=== PATIENT | male | born 1950 | race Caucasian/White ===

== ENCOUNTER 2016-10-19 08:56 | Outpatient (CLI) | payer MEDICARE, OTHER | END 2016-10-19 08:57 | disposition home or self-care (01) | DX: E78.5 Hyperlipidemia, unspecified (principal); I25.10 Atherosclerotic heart disease of native coronary artery without angina pectoris; I10 Essential (primary) hypertension; Z95.5 Presence of coronary angioplasty implant and graft; I25.83 Coronary atherosclerosis due to lipid rich plaque ==

== ENCOUNTER 2016-10-21 16:12 | Outpatient (CLI) | payer MEDICARE, OTHER | END 2016-10-21 16:13 | disposition home or self-care (01) | DX: Z77.090 Contact with and (suspected) exposure to asbestos (principal); R91.8 Other nonspecific abnormal finding of lung field ==

== ENCOUNTER 2016-11-09 13:44 | Outpatient (CLI) | payer MEDICARE, OTHER | END 2016-11-09 13:45 | disposition home or self-care (01) | DX: G47.61 Periodic limb movement disorder (principal); R06.83 Snoring | CPT/HCPCS: 99213; G0463 ==

== ENCOUNTER 2016-12-03 22:15 | Outpatient (CLI) | payer MEDICARE, OTHER | END 2016-12-03 22:16 | disposition home or self-care (01) | DX: G47.33 Obstructive sleep apnea (adult) (pediatric) (principal); Z68.31 Body mass index [BMI] 31.0-31.9, adult ==

== ENCOUNTER 2016-12-21 10:54 | Outpatient (CLI) | payer MEDICARE, OTHER | END 2016-12-21 10:55 | disposition home or self-care (01) | DX: G47.33 Obstructive sleep apnea (adult) (pediatric) (principal) | CPT/HCPCS: 99213; G0463 ==

== ENCOUNTER 2017-01-01 14:56 | Outpatient (CLI) | payer MEDICARE, OTHER | END 2017-01-01 14:57 | disposition home or self-care (01) | DX: N28.1 Cyst of kidney, acquired (principal); N32.9 Bladder disorder, unspecified; N20.0 Calculus of kidney ==

== ENCOUNTER 2017-01-10 19:44 | Outpatient (CLI) | payer MEDICARE, OTHER | END 2017-01-10 19:45 | disposition home or self-care (01) | DX: G47.33 Obstructive sleep apnea (adult) (pediatric) (principal) ==

== ENCOUNTER 2017-01-15 10:07 | Outpatient (CLI) | payer MEDICARE, OTHER | END 2017-01-15 10:08 | disposition home or self-care (01) | DX: N13.30 Unspecified hydronephrosis (principal); N20.1 Calculus of ureter; N26.1 Atrophy of kidney (terminal); N20.0 Calculus of kidney ==

== ENCOUNTER 2017-02-01 14:04 | Outpatient (CLI) | payer MEDICARE, OTHER | END 2017-02-01 14:05 | disposition home or self-care (01) | DX: G47.33 Obstructive sleep apnea (adult) (pediatric) (principal) | CPT/HCPCS: 99213; G0463 ==

== ENCOUNTER 2017-04-25 13:17 | Outpatient (CLI) | payer MEDICARE, OTHER | END 2017-04-25 13:18 | disposition home or self-care (01) | DX: G47.33 Obstructive sleep apnea (adult) (pediatric) (principal) | CPT/HCPCS: 99213; G0463 ==

== ENCOUNTER 2017-05-04 10:14 | Outpatient (CLI) | payer MEDICARE, OTHER | END 2017-05-04 10:15 | disposition home or self-care (01) | LOC: LAB.F 10:14 | PROVIDERS: ATTEND Urology | DX: E29.1 Testicular hypofunction (principal) | CPT/HCPCS: 36415; 84403 ==

== ENCOUNTER 2017-05-20 06:06 | Day surgery (SDC) | payer MEDICARE, OTHER ==
[2017-05-20] MEDS ORDERED: LACTATED RINGERS 1,000 ML IV ONE (07:14)
[2017-05-20] MEDS ORDERED: PROPOFOL 200 MG/20 ML VIAL IVP ONE (08:00)
[2017-05-20] MEDS ORDERED: LIDOCAINE-MPF 2% 5 ML VIAL IM ONE (08:00)
[2017-05-20] MEDS ORDERED: MIDAZOLAM 2 MG/2 ML VIAL IVP ONE (08:00)
[2017-05-20 11:03] VITALS: BP 128/75
== END 2017-05-20 06:07 | disposition home or self-care (01) ==
LOC: SDS 06:06
PROVIDERS: ATTEND Surgery
PROC: 0DBK8ZX Excision of Ascending Colon, Via Natural or Artificial Opening Endoscopic, Diagnostic (ICD-10-PCS; principal; 2017-05-20 07:30)
DX: D12.2 Benign neoplasm of ascending colon (principal); I25.10 Atherosclerotic heart disease of native coronary artery without angina pectoris; I25.2 Old myocardial infarction; E78.5 Hyperlipidemia, unspecified; I10 Essential (primary) hypertension; G47.33 Obstructive sleep apnea (adult) (pediatric); K21.9 Gastro-esophageal reflux disease without esophagitis; M54.9 Dorsalgia, unspecified; G89.29 Other chronic pain; Z79.82 Long term (current) use of aspirin; Z86.73 Personal history of transient ischemic attack (TIA), and cerebral infarction without residual deficits; Z87.891 Personal history of nicotine dependence
CPT/HCPCS: 45380; J7120

== ENCOUNTER 2017-05-30 13:14 | Outpatient (CLI) | payer MEDICARE, OTHER | END 2017-05-30 13:15 | disposition home or self-care (01) | LOC: SC 13:14 | PROVIDERS: ATTEND Internal Medicine Pulmonary Disease | DX: G47.33 Obstructive sleep apnea (adult) (pediatric) (principal) | CPT/HCPCS: 99213; G0463; 99212 ==

== ENCOUNTER 2017-07-04 13:16 | Outpatient (CLI) | payer MEDICARE, OTHER | END 2017-07-04 13:17 | disposition home or self-care (01) | LOC: SC 13:16 | PROVIDERS: ATTEND Internal Medicine Pulmonary Disease | DX: G47.33 Obstructive sleep apnea (adult) (pediatric) (principal) | CPT/HCPCS: 99213; G0463; 99212 ==

== ENCOUNTER 2017-08-29 13:17 | Outpatient (CLI) | payer MEDICARE, OTHER | END 2017-08-29 13:18 | disposition home or self-care (01) | LOC: SC 13:17 | PROVIDERS: ATTEND Internal Medicine Pulmonary Disease | DX: G47.33 Obstructive sleep apnea (adult) (pediatric) (principal) | CPT/HCPCS: 99213; G0463; 99212 ==

== ENCOUNTER 2017-10-31 13:21 | Outpatient (CLI) | payer MEDICARE, OTHER | END 2017-10-31 13:22 | disposition home or self-care (01) | LOC: SC 13:21 | PROVIDERS: ATTEND Internal Medicine Pulmonary Disease | DX: G47.33 Obstructive sleep apnea (adult) (pediatric) (principal) | CPT/HCPCS: 99213; G0463; 99212 ==

== ENCOUNTER 2019-09-18 16:09 | Outpatient (CLI) | payer MEDICARE, OTHER ==
[2019-09-18 16:57] LABS: BASOPHILS % (AUTO) 0.3 %; EOSINOPHILS # (AUTO) 0.1 10^3/uL (0.0-0.7); EOSINOPHILS % (AUTO) 2.2 %; HGB - HEMOGLOBIN 14.5 g/dL (14.0-18.0); LYMPHOCYTES # (AUTO) 1.6 10^3/uL (1.5-3.5); LYMPHOCYTES % (AUTO) 26.2 %; MEAN CORPUSCULAR HEMOGLOBIN 32.4 pg (27.0-31.0); MEAN CORPUSCULAR HGB CONC 34.8 g/dL (32.0-36.0); MEAN CORPUSCULAR VOLUME 93.3 fL (80.0-94.0); MEAN PLATELET VOLUME 11.2 fL (7.4-11.4); MONOCYTES # (AUTO) 0.5 10^3/uL (0.0-1.0); MONOCYTES % (AUTO) 8.3 %; NEUTROPHILS # (AUTO) 3.8 10^3/uL (1.5-6.6); NEUTROPHILS % (AUTO) 62.2 %; PLT - PLATELET COUNT 133 10^3/uL (130-450); RED BLOOD COUNT 4.47 10^6/uL (4.70-6.10)
--- NOTE | 2019-09-19 09:13 | XRAY Report ---
Reason: ARTHRITIS OF RIGHT KNEE Procedure Date: 09/18/2019 Accession Number: [id number] / [id number] Procedure: XR - Knee 3 View RT CPT Code: Final Report FULL RESULT: EXAM: RIGHT KNEE RADIOGRAPHY EXAM DATE: 09/18/2019 04:32 PM. CLINICAL HISTORY: ARTHRITIS OF RIGHT KNEE. COMPARISON: None. TECHNIQUE: 3 views. FINDINGS: Bones: No fracture or focus of bony destruction. No changes to suggest avascular necrosis. Normal mineralization. Joints: Mild degenerative changes involving the medial and patellofemoral joints with narrowing, subchondral sclerosis and osteophytic formation. No subluxation. Soft Tissues: Small suprapatellar joint effusion. Vascular calcifications are incidental in the popliteal artery. IMPRESSION: 1. Mild degenerative changes. 2. Vascular calcifications, incidental. RADIA
== END 2019-09-18 16:10 | disposition home or self-care (01) ==
LOC: DI 16:09
PROVIDERS: ATTEND Family Medicine
DX: M17.11 Unilateral primary osteoarthritis, right knee (principal); R79.89 Other specified abnormal findings of blood chemistry
CPT/HCPCS: 36415; 84403; 85025

== ENCOUNTER 2020-02-02 21:45 | Outpatient (CLI) | payer MEDICARE, OTHER | END 2020-02-02 21:46 | disposition EMS.NT | LOC: EMS 21:45 | PROVIDERS: ATTEND Surgery | DX: R03.0 Elevated blood-pressure reading, without diagnosis of hypertension (principal); R42 Dizziness and giddiness ==

== ENCOUNTER 2020-08-19 11:45 | Outpatient (CLI) | payer MEDICARE, OTHER ==
[2020-08-19 12:20] LABS: BILIRUBIN,URINE NEGATIVE (NEGATIVE); GLUCOSE, URINE (UA) NEGATIVE (NEGATIVE); KETONES,URINE (UA) NEGATIVE (NEGATIVE); LEUKOCYTE ESTERASE, URINE MODERATE (NEGATIVE); NITRITE,URINE POSITIVE (NEGATIVE); OCCULT BLOOD,URINE MODERATE (NEGATIVE); PROTEIN,URINE NEGATIVE (NEGATIVE); UROBILINOGEN,URINE 0.2 (NORMAL) E.U./dL (NORMAL)
[2020-08-19 12:28] LABS: BACTERIA,URINE Many /HPF (None Seen); CLARITY,URINE HAZY (CLEAR); SQUAMOUS EPITHELIAL CELL,UR NONE SEEN (<= Few)
== END 2020-08-19 11:46 | disposition home or self-care (01) ==
LOC: LAB 11:45
PROVIDERS: ATTEND Urology
DX: N20.0 Calculus of kidney (principal)
CPT/HCPCS: 81001; 87086; 87181

== ENCOUNTER 2020-10-01 11:55 | Outpatient (CLI) | payer MEDICARE, OTHER ==
[2020-10-01 15:32] LABS: BILIRUBIN,URINE NEGATIVE (NEGATIVE); GLUCOSE, URINE (UA) NEGATIVE (NEGATIVE); KETONES,URINE (UA) NEGATIVE (NEGATIVE); LEUKOCYTE ESTERASE, URINE MODERATE (NEGATIVE); NITRITE,URINE NEGATIVE (NEGATIVE); OCCULT BLOOD,URINE SMALL (NEGATIVE); PROTEIN,URINE 30 mg/dL (NEGATIVE); UROBILINOGEN,URINE 0.2 (NORMAL) E.U./dL (NORMAL)
[2020-10-01 15:45] LABS: BACTERIA,URINE Many /HPF (None Seen); CLARITY,URINE HAZY (CLEAR); SQUAMOUS EPITHELIAL CELL,UR NONE SEEN (<= Few); WBC CLUMPS,URINE PRESENT
== END 2020-10-01 11:56 | disposition home or self-care (01) ==
LOC: LAB.S 11:55
PROVIDERS: ATTEND Physician Assistant Medical
DX: N39.0 Urinary tract infection, site not specified (principal)
CPT/HCPCS: 81001; 81599; 87086; 87181

== ENCOUNTER 2020-11-22 00:22 | Emergency (ER) | payer MEDICARE, OTHER ==
[2020-11-22] MEDS ORDERED: cefTRIAXone 1 GM in SODIUM CHLORIDE 0.9% MINIBAG 100 ML IV STA (00:49)
--- NOTE | 2020-11-22 00:50 | ED Physician Documentation ---
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 Del Toro presents with malaise, chills, and abdominal discomfort gradual in onset this evening. diffuse, aching, constant, mild/moderate, nonradiating, without exac/relieving factors. Patient states he has been on keflex for about a week, both preop and postop. denies urinary sx, back pain, n/v/d. Review of Systems Ten Systems: 10 systems reviewed and negative Constitutional: reports: Fever, Chills, Myalgias, Fatigue Cardiac: denies: Chest pain / pressure Respiratory: denies: Dyspnea GI: reports: Abdominal Pain. denies: Nausea, Vomiting, Diarrhea : denies: Dysuria Neurologic: reports: Generalized weakness PD PAST MEDICAL HISTORY - Past Medical History Cardiovascular: Hypertension, High cholesterol, [place] Respiratory: Sleep apnea, CPAP use Endocrine/Autoimmune: None GI: Ulcers, Colon polyps : Kidney stones HEENT: None Psych: None Musculoskeletal: Chronic back pain Derm: None - Past Surgical History General: Colonoscopy, Other - Present Medications Home Medications: Ambulatory Orders Medication Instructions Recorded Confirmed Aspirin [Aspirin EC] 81 mg PO DAILY 05/19/17 05/19/17 Fluticasone [Flonase] 1 sprays GREGORY DAILY 05/19/17 05/19/17 Losartan Potassium 100 mg PO DAILY 05/19/17 05/19/17 Omeprazole [PriLOSEC] 20 mg PO DAILY 05/19/17 05/19/17 Oxycodone HCl/Acetaminophen 10 - 325 mg PO Q8H PRN 05/19/17 05/19/17 [Endocet 7.5-325 mg Tablet] Sildenafil Citrate [Viagra] 50 mg PO ONCE PRN 05/19/17 05/19/17 Simvastatin 40 mg PO QPM 05/19/17 05/19/17 Testosterone Cypionate 200 mg IM ONCE 05/19/17 05/19/17 [Depo-Testosterone] diazePAM [Diazepam] 10 mg PO QPM PRN 05/19/17 05/19/17 methocarbamoL [Robaxin] 500 mg PO TID 05/19/17 05/19/17 - Allergies Allergies/Adverse Reactions: Allergies Allergy/AdvReac Type Severity Reaction Status Date / Time atorvastatin [From Lipitor] Allergy Unknown Verified 11/22/20 00:34 lisinopril Allergy Unknown Verified 11/22/20 00:34 erythromycin base AdvReac Nausea Verified 05/19/17 13:34 PD ED PE NORMAL - Vitals Vital signs reviewed: Yes - General General: Alert and oriented X 3, No acute distress, Well developed/nourished - HEENT HEENT: Atraumatic, PERRL, EOMI - Neck Neck: Supple, no meningeal sign - Cardiac Cardiac: RRR - Respiratory Respiratory: No respiratory distress, Clear bilaterally - Abdomen Abdomen: Other (discomfort diffusely to palpation. distended abdomen.) - Male Male : Deferred - Rectal Rectal: Deferred - Back Back: Other (L CVA discomfort to palpation) - Derm Derm: Normal color - Extremities Extremities: No deformity - Neuro Neuro: Alert and oriented X 3 - Psych Psych: Normal mood, Normal affect Results - Vitals Vitals: Vital Signs - 24 hr 11/22/20 11/22/20 11/22/20 00:31 02:13 02:30 Temperature 38.2 C H 37.4 C Heart Rate 114 H 104 H 96 Respiratory 18 18 22 Rate Blood Pressure 157/100 H 141/85 H 136/83 H O2 Saturation 97 92 94 11/22/20 11/22/20 11/22/20 02:58 03:24 03:37 Temperature 37.4 C Heart Rate 106 H 98 Respiratory 16 18 18 Rate Blood Pressure 136/97 H O2 Saturation 95 95 11/22/20 04:30 Temperature Heart Rate 104 H Respiratory 16 Rate Blood Pressure 135/78 H O2 Saturation 93 Oxygen O2 Source Room air - Labs Labs: Laboratory Tests 11/22/20 11/22/20 11/22/20 01:04 01:05 01:05 WBC 14.2 H RBC 4.51 L Hgb 14.4 Hct 42.8 MCV 94.9 H MCH 31.9 H MCHC 33.6 RDW 14.3 Plt Count 117 L MPV 11.1 Neut # (Auto) 12.4 H Lymph # (Auto) 0.7 L [place] # (Auto) 0.9 Eos # (Auto) 0.1 Baso # (Auto) 0.0 Absolute Nucleated RBC 0.00 Nucleated RBC % 0.0 Sodium 136 Potassium 3.8 Chloride 98 L Carbon Dioxide 24 Anion Gap 14.0 H BUN 16 Creatinine 1.2 Estimated GFR (MDRD) 60 L Glucose 128 H Lactic Acid Calcium 8.7 Total Bilirubin 1.4 H AST 32 ALT 34 Alkaline Phosphatase 59 Total Protein 6.1 L Albumin 3.5 Globulin 2.6 Albumin/Globulin Ratio 1.3 Urine Color Urine Clarity Urine pH Ur Specific [place] Urine Protein Urine Glucose (UA) Urine Ketones Urine Occult Blood Urine Nitrite Urine Bilirubin Urine Urobilinogen Ur Leukocyte Esterase Urine RBC Urine WBC Ur Squamous Epith Cells Urine Bacteria Urine Culture Comments Nasal Adenovirus (PCR) NOT DETECTED Nasal B. parapertussis DNA (PCR) NOT DETECTED Nasal Coronavir 229E PCR NOT DETECTED Nasal Coronavir HKU1 PCR NOT DETECTED Nasal Coronavir NL63 PCR NOT DETECTED Nasal Coronavir OC43 PCR NOT DETECTED Nasal Enterovir/Rhinovir PCR NOT DETECTED Nasal Influenza B PCR NOT DETECTED Nasal Influenza A PCR NOT DETECTED Nasal Parainfluen 1 PCR NOT DETECTED Nasal Parainfluen 2 PCR NOT DETECTED Nasal Parainfluen 3 PCR NOT DETECTED Nasal Parainfluen 4 PCR NOT DETECTED Nasal RSV (PCR) NOT DETECTED Nasal B.pertussis DNA PCR NOT DETECTED Nasal C.pneumoniae (PCR) NOT DETECTED Gregory Human Metapneumo PCR NOT DETECTED Nasal M.pneumoniae (PCR) NOT DETECTED Nasal SARS-CoV-2 (PCR) NOT DETECTED 11/22/20 11/22/20 11/22/20 01:10 02:40 04:40 WBC RBC Hgb Hct MCV MCH MCHC RDW Plt Count MPV Neut # (Auto) Lymph # (Auto) [place] # (Auto) Eos # (Auto) Baso # (Auto) Absolute Nucleated RBC Nucleated RBC % Sodium Potassium Chloride Carbon Dioxide Anion Gap BUN Creatinine Estimated GFR (MDRD) Glucose Lactic Acid 2.2 2.2 Calcium Total Bilirubin AST ALT Alkaline Phosphatase Total Protein Albumin Globulin Albumin/Globulin Ratio Urine Color DARK YELLOW Urine Clarity SL. CLOUDY Urine pH 6.0 Ur Specific [place] <=1.005 Urine Protein NEGATIVE Urine Glucose (UA) NEGATIVE Urine Ketones NEGATIVE Urine Occult Blood LARGE H Urine Nitrite POSITIVE H Urine Bilirubin NEGATIVE Urine Urobilinogen 0.2 (NORMAL) Ur Leukocyte Esterase MODERATE H Urine RBC 6-10 H Urine WBC 6-10 H Ur Squamous Epith Cells NONE SEEN Urine Bacteria Moderate H Urine Culture Comments INDICATED Nasal Adenovirus (PCR) Nasal B. parapertussis DNA (PCR) Nasal Coronavir 229E PCR Nasal Coronavir HKU1 PCR Nasal Coronavir NL63 PCR Nasal Coronavir OC43 PCR Nasal Enterovir/Rhinovir PCR Nasal Influenza B PCR Nasal Influenza A PCR Nasal Parainfluen 1 PCR Nasal Parainfluen 2 PCR Nasal Parainfluen 3 PCR Nasal Parainfluen 4 PCR Nasal RSV (PCR) Nasal B.pertussis DNA PCR Nasal C.pneumoniae (PCR) Gregory Human Metapneumo PCR Nasal M.pneumoniae (PCR) Nasal SARS-CoV-2 (PCR) PD MEDICAL DECISION MAKING - ED course ED course: 12:45 AMsepsis suspected at this time. 30 cc/kg bolus withheld since patient appears to have ascitic abdomen. His blood pressure is robust and he is not hypotensive at this time. Will give a liter of fluids to start. Suspected source is given recent lithotripsy with stent placement. 2:15am- pain improved. tachycardia improved and fever has defervesced. CT with possible thickening/inflammation around L uteral stent. awaiting radiologist read. 4am - d/w urologist Dr. Tinoco. patient will be transferred to for iv antibiotics, management of uti/ureteral stent. Dr. Tinoco requested a rosa be placed and it was agreed we would attempt a orsa. d/w patient who refused at this time. d/w Dr. Yon Minor, accepting hospitalist. will give zosyn in light of prior MDR cultures and transfer to for iv antibiotics. Departure - Departure Disposition: 02 Transfer Acute Care Hosp Clinical Impression: UTI (urinary tract infection), Infection and inflammatory reaction due to indwelling ureteral stent, initial encounter Condition: Stable
[2020-11-22] MEDS ORDERED: SODIUM CHLORIDE 0.9% 1,000 ML IV STA (00:52)
[2020-11-22] MEDS ORDERED: ACETAMINOPHEN 325 MG TABLET PO STA (00:54)
[2020-11-22] MEDS ORDERED: cefTRIAXone 1 GM VIAL ONE (01:08)
[2020-11-22 01:29] LABS: BASOPHILS % (AUTO) 0.1 %; EOSINOPHILS # (AUTO) 0.1 10^3/uL (0.0-0.7); EOSINOPHILS % (AUTO) 0.4 %; HCT - HEMATOCRIT 42.8 % (42.0-52.0); HGB - HEMOGLOBIN 14.4 g/dL (14.0-18.0); LYMPHOCYTES # (AUTO) 0.7 10^3/uL (1.5-3.5); MEAN CORPUSCULAR HEMOGLOBIN 31.9 pg (27.0-31.0); MEAN CORPUSCULAR HGB CONC 33.6 g/dL (32.0-36.0); MEAN CORPUSCULAR VOLUME 94.9 fL (80.0-94.0); MEAN PLATELET VOLUME 11.1 fL (7.4-11.4); MONOCYTES # (AUTO) 0.9 10^3/uL (0.0-1.0); MONOCYTES % (AUTO) 6.1 %; NEUTROPHILS # (AUTO) 12.4 10^3/uL (1.5-6.6); NEUTROPHILS % (AUTO) 87.8 %; PLT - PLATELET COUNT 117 10^3/uL (130-450); RED BLOOD COUNT 4.51 10^6/uL (4.70-6.10); RED CELL DISTRIBUTION WIDTH 14.3 % (12.0-15.0); WHITE BLOOD COUNT 14.2 x10^3/uL (4.8-10.8)
[2020-11-22 01:38] LABS: LACTIC ACID, VENOUS 2.2 mmol/L (0.5-2.2)
[2020-11-22 01:39] LABS: ALBUMIN 3.5 g/dL (3.2-5.5); ALBUMIN/GLOBULIN RATIO 1.3 (1.0-2.2); BILIRUBIN,TOTAL 1.4 mg/dL (0.2-1.0); CALCIUM 8.7 mg/dL (8.5-10.3); CREATININE 1.2 mg/dL (0.6-1.2); POTASSIUM 3.8 mmol/L (3.5-5.0); TOTAL PROTEIN 6.1 g/dL (6.7-8.2)
[2020-11-22] MEDS ORDERED: IOVERSOL 320 100 ML VIAL IVP ONE ×2 (01:40→02:12)
[2020-11-22 02:10] LABS: B. PARAPERTUSSIS- RESP PCR PAN NOT DETECTED; B. PERTUSSIS- RESP PCR PANEL NOT DETECTED; C. PNEUMONIAE- RESP PCR PANEL NOT DETECTED; CORONAVIRUS 229E-RESP PCR NOT DETECTED; CORONAVIRUS HKU1-RESP PCR NOT DETECTED; CORONAVIRUS NL63-RESP PCR NOT DETECTED; CORONAVIRUS OC43-RESP PCR NOT DETECTED; HUMAN METAPNEUMOVIRUS NOT DETECTED; INFLUENZA A- RESP PCR PANEL NOT DETECTED; INFLUENZA B - RESP PCR PANEL NOT DETECTED; M. PNEUMONIAE- RESP PCR PANEL NOT DETECTED; PARAINFLUENZA VIRUS 1 NOT DETECTED; PARAINFLUENZA VIRUS 2 NOT DETECTED; PARAINFLUENZA VIRUS 3 NOT DETECTED; PARAINFLUENZA VIRUS 4 NOT DETECTED; RHINOVIRUS/ENTEROVIRUS NOT DETECTED; RSV- RESP PCR PANEL NOT DETECTED; SARS-CoV-2 -RESP PCR PANEL NOT DETECTED
[2020-11-22 03:01] LABS: BILIRUBIN,URINE NEGATIVE (NEGATIVE); GLUCOSE, URINE (UA) NEGATIVE (NEGATIVE); KETONES,URINE (UA) NEGATIVE (NEGATIVE); LEUKOCYTE ESTERASE, URINE MODERATE (NEGATIVE); NITRITE,URINE POSITIVE (NEGATIVE); OCCULT BLOOD,URINE LARGE (NEGATIVE); PROTEIN,URINE NEGATIVE (NEGATIVE); UROBILINOGEN,URINE 0.2 (NORMAL) E.U./dL (NORMAL)
[2020-11-22 03:02] LABS: CLARITY,URINE SL. CLOUDY (CLEAR)
[2020-11-22 03:03] LABS: BACTERIA,URINE Moderate /HPF (None Seen); SQUAMOUS EPITHELIAL CELL,UR NONE SEEN (<= Few)
[2020-11-22] MEDS ORDERED: VANCOMYCIN INJ 1.5 GM in SODIUM CHLORIDE 0.9% 500 ML IV STA (03:06)
[2020-11-22] MEDS ORDERED: VANCOMYCIN 1 GM VIAL ONE (03:24)
[2020-11-22] MEDS ORDERED: SODIUM CHLORIDE 0.9% 1,000 ML IV SCH (05:00)
[2020-11-22 05:04] LABS: LACTIC ACID, VENOUS 2.2 mmol/L (0.5-2.2)
[2020-11-22] MEDS ORDERED: PIPERACILLIN/TAZOBACTAM 3.375 GM in SODIUM CHLORIDE 0.9% MINIBAG 100 ML IV STA (05:10)
[2020-11-22] MEDS ORDERED: MORPHINE 2 MG/ML CARPUJECT IVP STA (07:23)
[2020-11-22 08:02] VITALS: BP 132/78
--- NOTE | 2020-11-22 10:42 | CT Report ---
PROCEDURE: Abdomen/Pelvis W INDICATIONS: recent lithotripsy, L stent placed. septic CONTRAST: IV CONTRAST: Optiray 320 ml: 100 PO CONTRAST: *NO PO CONTRAST TECHNIQUE: After the administration of nonionic contrast, 5 mm thick sections acquired from the diaphragms to th e symphysis. 5 mm thick coronal and sagittal reformats were acquired. For radiation dose reduction, the following was used: automated exposure control, adjustment of mA and/or kV according to patient size. COMPARISON: 01/15/2017 FINDINGS: Image quality: Excellent. ABDOMEN: Lung bases: Basilar atelectasis/scarring. Marked multivessel coronary vascular calcifications. Heart size is normal. No pericardial effusion. Solid organs: Liver and spleen are normal in size and enhancement. Gallbladder demonstrates multipl e folds, otherwise unremarkable. Biliary system is non dilated. Pancreas enhances normally. No adr enal nodules. Nonobstructing punctate left renal stone is noted. Unchanged atrophic appearance of the left kidney. Multilobulated cyst at the inferior pole of the right kidney with questionable thin septation with ca lcification. No definite enhancing nodule. This is grossly unchanged from noncontrast examination. Ne phroureteral stent is noted coiled within the left renal pelvis extending through the ureter and into the bladder. There is mild left-sided ureteral dilation with enhancement of the ureteral wall. There is moderate to marked right ureteral dilation with mild hydronephrosis. There is air noted within th e mid right ureter and within the renal pelvis. There is enhancement of the ureteral wall with mild a djacent inflammation. There is mild perinephric inflammation. The previously noted right renal calcif ications aren't not noted on today's exam. There is no obstructing calcification. Calcifications anjana g the distal right ureter favored to be vascular in origin. Peritoneum and bowel: Bowel loops demonstrate normal wall thickness and caliber. No free fluid or a ir. Nodes and vessels: No retroperitoneal or mesenteric adenopathy by size criteria. Aorta and inferior vena cava are normal in size. Miscellaneous: No ventral hernias. PELVIS: Genitourinary: Mild bladder wall thickening. Dependent air, likely from recent surgery. Nephrouretera l stent is noted coiled within the bladder. Stable urachal diverticulum. Miscellaneous: Small fat-containing left inguinal hernia. Bones: No suspicious bony lesions. Scoliosis of the spine with multilevel degenerative changes. Deg enerative changes of the hips. No vertebral body compression fractures. IMPRESSION: Left nephroureteral stent in place with moderate to marked ureteral dilation bilaterally with hyperen hancement of the wall of the ureters. This may be secondary to recent instrumentation versus infectio n. Mild right-sided hydronephrosis with air. This is may be due to recent in indentation, however underl tio infection cannot be completely excluded. Mild wall thickening of the bladder wall which may be seen with cystitis versus outlet obstruction. D ependent foci of gas likely due to recent instrumentation. Punctate nonobstructing left-sided nephrolith remains. Agree with preliminary report. Reviewed by: Chace Dela Cruz DO on 11/22/2020 9:41 AM LAMBERTO Approved by: Chace Dela Cruz DO on 11/22/2020 9:41 AM [facility] Station ID: [id number]
== END 2020-11-22 09:02 | disposition short-term general hospital (02) ==
LOC: ED 00:22
DX: T83.592A Infection and inflammatory reaction due to indwelling ureteral stent, initial encounter (principal); N39.0 Urinary tract infection, site not specified; Z98.890 Other specified postprocedural states; I10 Essential (primary) hypertension; Z20.822 Contact with and (suspected) exposure to COVID-19
CPT/HCPCS: 36415; 74177; 80053; 81001; 83605; 85025; 87040; 87086; 87150; 87181; 87631; 96365; 96366; 96367; 96368; 96375; 99284; 99285; A9270; J3370; Q9967; 0202U

== ENCOUNTER 2020-11-22 08:55 | Outpatient (CLI) | payer MEDICARE, OTHER | END 2020-11-22 08:56 | disposition short-term general hospital (02) | LOC: EMS 08:55 | DX: T83.9XXA Unspecified complication of genitourinary prosthetic device, implant and graft, initial encounter (principal) | CPT/HCPCS: A0425; A0428 ==

== ENCOUNTER 2020-12-18 13:01 | Emergency (ER) | payer MEDICARE, OTHER ==
[2020-12-18 13:31] LABS: BASOPHILS % (AUTO) 0.3 %; EOSINOPHILS # (AUTO) 0.3 10^3/uL (0.0-0.7); EOSINOPHILS % (AUTO) 4.9 %; HCT - HEMATOCRIT 47.6 % (42.0-52.0); HGB - HEMOGLOBIN 15.8 g/dL (14.0-18.0); LYMPHOCYTES # (AUTO) 1.5 10^3/uL (1.5-3.5); LYMPHOCYTES % (AUTO) 22.8 %; MEAN CORPUSCULAR HEMOGLOBIN 31.9 pg (27.0-31.0); MEAN CORPUSCULAR HGB CONC 33.2 g/dL (32.0-36.0); MEAN PLATELET VOLUME 11.1 fL (7.4-11.4); MONOCYTES # (AUTO) 0.5 10^3/uL (0.0-1.0); NEUTROPHILS # (AUTO) 4.4 10^3/uL (1.5-6.6); NEUTROPHILS % (AUTO) 64.4 %; PLT - PLATELET COUNT 139 10^3/uL (130-450); RED BLOOD COUNT 4.96 10^6/uL (4.70-6.10); RED CELL DISTRIBUTION WIDTH 13.6 % (12.0-15.0); WHITE BLOOD COUNT 6.8 x10^3/uL (4.8-10.8)
[2020-12-18 13:45] LABS: ALBUMIN 3.9 g/dL (3.2-5.5); ALBUMIN/GLOBULIN RATIO 1.2 (1.0-2.2); BILIRUBIN,TOTAL 0.7 mg/dL (0.2-1.0); CALCIUM 9.9 mg/dL (8.5-10.3); CREATININE 1.1 mg/dL (0.6-1.2); POTASSIUM 4.3 mmol/L (3.5-5.0); TOTAL PROTEIN 7.2 g/dL (6.7-8.2)
[2020-12-18 14:03] LABS: BILIRUBIN,URINE NEGATIVE (NEGATIVE); GLUCOSE, URINE (UA) NEGATIVE (NEGATIVE); KETONES,URINE (UA) NEGATIVE (NEGATIVE); LEUKOCYTE ESTERASE, URINE MODERATE (NEGATIVE); NITRITE,URINE POSITIVE (NEGATIVE); OCCULT BLOOD,URINE TRACE-INTA (NEGATIVE); PH,URINE 5.5 PH (5.0-7.5); PROTEIN,URINE NEGATIVE (NEGATIVE); UROBILINOGEN,URINE 0.2 (NORMAL) E.U./dL (NORMAL)
[2020-12-18 14:04] LABS: CLARITY,URINE SL. CLOUDY (CLEAR)
--- NOTE | 2020-12-18 14:08 | ED Physician Documentation ---
History of Present Illness - Stated complaint Stated Complaint: MALE /FLANK PX/ABNORMAL LAB - Chief complaint Chief Complaint: UTI - Additonal information Additional information: 70-year-old male presents to the emergency department for concern that he may have a recurrent urinary tract infection. 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 He underwent lithotripsy 11/19/2020. Unfortunately he presented to this emergency department 11/22/2020 and was found to have a urinary tract infection, and sepsis secondary to a retained ureter stone and stent. He was subsequently transferred to [facility]. While there he was seen by infectious disease and urology. He unfortunately developed an ESBL bacteremia and upon discharge received 10 days of ertapenem through our [facility] clinic. His last dose of any antibiotic at all was 12/05/2020. This gentleman reports that over the last 24 hours he has noticed cloudy and foul-smelling urine as well as a slight increase in right flank pain. He denies fevers, chest pain, shortness of breath or congestion. Review of Systems Constitutional: reports: Reviewed and negative Eyes: reports: Reviewed and negative Ears: reports: Reviewed and negative Nose: reports: Reviewed and negative Throat: reports: Reviewed and negative Cardiac: reports: Reviewed and negative Respiratory: reports: Reviewed and negative GI: reports: Abdominal Pain (right flank). denies: Nausea, Vomiting : reports: Dysuria, Other (foul smelling urine) Skin: reports: Reviewed and negative PD PAST MEDICAL HISTORY - Past Medical History Cardiovascular: Hypertension, High cholesterol, [place] Respiratory: Sleep apnea, CPAP use Neuro: None Endocrine/Autoimmune: None GI: Ulcers, Colon polyps : Kidney stones HEENT: None Psych: None Musculoskeletal: Chronic back pain Derm: None - Past Surgical History Past Surgical History: Yes General: Colonoscopy, Other - Present Medications Home Medications: Ambulatory Orders Medication Instructions Recorded Confirmed Aspirin [Aspirin EC] 81 mg PO DAILY 05/19/17 05/19/17 Fluticasone [Flonase] 1 sprays GREGORY DAILY 05/19/17 05/19/17 Losartan Potassium 100 mg PO DAILY 05/19/17 05/19/17 Omeprazole [PriLOSEC] 20 mg PO DAILY 05/19/17 05/19/17 Oxycodone HCl/Acetaminophen 10 - 325 mg PO Q8H PRN 05/19/17 05/19/17 [Endocet 7.5-325 mg Tablet] Sildenafil Citrate [Viagra] 50 mg PO ONCE PRN 05/19/17 05/19/17 Simvastatin 40 mg PO QPM 05/19/17 05/19/17 Testosterone Cypionate 200 mg IM ONCE 05/19/17 05/19/17 [Depo-Testosterone] diazePAM [Diazepam] 10 mg PO QPM PRN 05/19/17 05/19/17 methocarbamoL [Robaxin] 500 mg PO TID 05/19/17 05/19/17 Nitrofurantoin Monohyd/M-Cryst 100 mg PO BID 20 Days #20 cap 12/18/20 [Macrobid 100 mg Capsule] - Allergies Allergies/Adverse Reactions: Allergies Allergy/AdvReac Type Severity Reaction Status Date / Time atorvastatin [From Lipitor] Allergy Unknown Verified 12/18/20 13:42 lisinopril Allergy Unknown Verified 12/18/20 13:42 erythromycin base AdvReac Nausea Verified 12/18/20 13:42 - Social History Does the pt smoke?: No Smoking Status: Never smoker Does the pt drink ETOH?: No Does the pt have substance abuse?: No - Immunizations Immunizations are current?: Yes - POLST Patient has POLST: No PD ED PE EXPANDED - General General: Alert, No acute distress - Neck Neck: Supple w/out meningeal sx. No: Adenopathy - Cardiac Cardiac: Regular Rate, Radial strong equal, Pedal strong equal, Cap refill < 2 sec. No: Murmur Present - Respiratory Respiratory: Clear to ausultation otoniel. No: Distress, Labored - Abdomen Abdomen: Normal Bowel sounds, Tender to palpation (tenderness to the right flank; no rebound or guarding. No CVA tenderness bilaterally) - Derm Derm: Normal color, Warm and dry - Extremities Extremities: Normal. No: Deformity - Neuro Neuro: Alert and Oriented X 3, CNII-XII intact - GCS Eye Opening: Spontaneous Motor: Obeys Commands Verbal: Oriented Total: 15 Results - Vitals Vitals: Vital Signs - 24 hr 12/18/20 12/18/20 12/18/20 13:37 14:09 15:33 Temperature 36.2 C L 36.6 C Heart Rate 70 65 63 Respiratory 14 16 15 Rate Blood Pressure 149/89 H 138/102 H 135/88 H O2 Saturation 95 98 95 12/18/20 17:02 Temperature Heart Rate 64 Respiratory 15 Rate Blood Pressure 154/88 H O2 Saturation 99 Oxygen O2 Source Room air - Labs Labs: Laboratory Tests 12/18/20 12/18/20 12/18/20 13:22 13:22 13:54 WBC 6.8 RBC 4.96 Hgb 15.8 Hct 47.6 MCV 96.0 H MCH 31.9 H MCHC 33.2 RDW 13.6 Plt Count 139 MPV 11.1 Neut # (Auto) 4.4 Lymph # (Auto) 1.5 [place] # (Auto) 0.5 Eos # (Auto) 0.3 Baso # (Auto) 0.0 Absolute Nucleated RBC 0.00 Nucleated RBC % 0.0 Sodium 143 Potassium 4.3 Chloride 99 L Carbon Dioxide 27 Anion Gap 17.0 H BUN 15 Creatinine 1.1 Estimated GFR (MDRD) 66 L Glucose 117 H Calcium 9.9 Total Bilirubin 0.7 AST 24 ALT 27 Alkaline Phosphatase 70 Total Protein 7.2 Albumin 3.9 Globulin 3.3 Albumin/Globulin Ratio 1.2 Lipase 38 Urine Color YELLOW Urine Clarity SL. CLOUDY Urine pH 5.5 Ur Specific [place] 1.015 Urine Protein NEGATIVE Urine Glucose (UA) NEGATIVE Urine Ketones NEGATIVE Urine Occult Blood TRACE-INTA Urine Nitrite POSITIVE H Urine Bilirubin NEGATIVE Urine Urobilinogen 0.2 (NORMAL) Ur Leukocyte Esterase MODERATE H Urine RBC 0-5 Urine WBC >25 H Urine WBC Clumps PRESENT Ur Squamous Epith Cells RARE Squamous Urine Bacteria Moderate H Ur Microscopic Review INDICATED Urine Culture Comments INDICATED - Rads (name of study) CT abd Radiology: Final report received (Diffuse bladder wall thickening is nonspecific but can be seen in the setting of cystitis. Mild bilateral hydroureter with ureter wall enhancement is suspicious for a sending infection. No definite signs of acute pyelonephritis. Chronic left renal atrophy and multifocal scarring. ), See rad report PD MEDICAL DECISION MAKING - ED course Complexity details: reviewed results, re-evaluated patient, considered differential, d/w patient ED course: 70-year-old male presents to the emergency department for evaluation of what he suspects is a recurrent urinary tract infection. Last seen for this in early November in which he unfortunately had sepsis secondary to infection and a retained urinary stone. He does have a history of congenital renal anomaly. Is ultimately transferred to [facility] where his subsequent blood and urine cultures grew an ESBL E. coli. He did receive 10 days of ertapenem through our [facility] clinic. 1445: On presentation this gentleman is not febrile, tachycardic, or hypotensive. He does appear well. He has some right sided flank pain without guarding or rebound. Screening labs show no leukocytosis. However his urine is quite suggestive of infection with moderate bacteria and nitrite positive and ma ny WBCs. CT scan is pending. However given most recent cultures will initiate IV antibiotics with meropenem for which his ESBL E. coli was sensitive to. At this time he does not present as septic 1500: I have spoken with pt's ID Dr. Molina regarding patient's presentation today. At this time it does appear that the infection is isolated only to the urine and proximal ureter. Though he does have a history of ESBL E. coli management of this will prove difficult if that is what is currently infecting him today. Culture is pending. However as the patient appears well and does not present as septic he feels that it is appropriate at this time to discharge him with a prescription of Macrobid which has good urine penetration. If his symptoms were to change, cx grow ESBL e-coli or he were to develop flank pain fevers or any other concerns of infection he should return to the emergency department at which time the goal would be to admit him in order to arrange outpatient ertapenem infusions. 1645. I have spoken with urology Dr. Harding . he is on-call for [facility]'s urologist Dr. Ahmadi. We discussed the patient's presentation today his labs as well as the full CT results. He is in agreement that this gentleman does not need to be admitted or transferred for infection of this urine. The CT scan does not show any ureter stones or findings consistent with pyelonephritis. He feels that outpatient antibiotic are appropriate however if his symptoms were to change at that point he would again recommend inpatient admission to initiate ertapenem infusions. I spent a fair amount of time discussing this with the patient and he is in agreement. We will write a 10-day course of Macrobid. First dose was given here in the emergency department. Patient will schedule very close follow-up with his urology department as well as with his infectious disease provider. It was made explicitly clear that any fevers or worsening flank pain or dysuria the patient should immediately return to the emergency department Departure - Departure Disposition: 01 Home, Self Care Clinical Impression: Nephrolithiasis Urinary tract infection Qualifiers: Urinary tract infection type: acute cystitis Hematuria presence: without hematuria Qualified Code(s): N30.00 - Acute cystitis without hematuria Condition: Stable Record reviewed to determine appropriate education?: Yes Follow-Up: Marcus Molina MD [Physician No Access] - VISHNU AHMADI MD [Physician No Access] - Prescriptions: Nitrofurantoin Monohyd/M-Cryst [Macrobid 100 mg Capsule] 100 mg PO BID 20 Days #20 cap Comments: You were seen today for concerns of infection in your urine. Your urine does show infection. As we discussed your blood count is normal and there is no rise in your white count. Your kidney function is normal. The CT scan that we did today does show inflammation in the bladder which is consistent with a bladder infection. However as we also discussed there are no stones in your ureter nor other findings of infection in the kidneys. Because you do have a history of a difficult to treat infection in the urine we are sending your blood and urine for cultures. This time we would like to start you on Macrobid to be taken twice a day for at least 10 days. If your cultures regrow the antibiotic that you had previously you will be called to return to the emergency department. If at any point you develop fevers, have worsening pain or feel that your in fection is not resolving in any way please return immediately to the ER. Please schedule follow-up as soon as you are able with Dr. Ahmadi your urologist as well as Dr. Molina the infectious disease physician. Discharge Date/Time: 12/18/20 17:43
[2020-12-18 14:14] LABS: BACTERIA,URINE Moderate /HPF (None Seen); RBC,URINE 0-5 /HPF (0-5); SQUAMOUS EPITHELIAL CELL,UR RARE Squamous (<= Few); WBC CLUMPS,URINE PRESENT; WBC,URINE >25 /HPF (0-3)
[2020-12-18] MEDS ORDERED: SODIUM CHLORIDE 0.9% 1,000 ML IV STA (14:19)
[2020-12-18] MEDS ORDERED: IOVERSOL 320 100 ML VIAL IVP ONE ×2 (14:34→15:10)
[2020-12-18] MEDS ORDERED: MEROPENEM 1 GM in SODIUM CHLORIDE 0.9% MINIBAG 100 ML IV STA (14:41)
--- NOTE | 2020-12-18 15:12 | CT Report ---
PROCEDURE: Abdomen/Pelvis W INDICATIONS: UTI; ? pyelo or infected stone CONTRAST: IV CONTRAST: Optiray 320 ml: 100 PO CONTRAST: *NO PO CONTRAST TECHNIQUE: After the administration of intravenous contrast, 5 mm thick sections acquired from the diaphragms to the symphysis. 5 mm thick coronal and sagittal reformats were acquired. For radiation dose reducti on, the following was used: automated exposure control, adjustment of mA and/or kV according to penelope ent size. COMPARISON: CT abdomen/pelvis 11/22/2020. FINDINGS: Image quality: Excellent. ABDOMEN: Lung bases: There is mild scarring or atelectasis in the lung bases. Heart size is normal. Solid organs: Liver and spleen are normal in size and enhancement. Gallbladder appears normal. Primitivo iary system is non dilated. Pancreas enhances normally and there is moderate fatty infiltration. No adrenal nodules. The previously seen left ureteral stent has been removed. Multifocal left renal scarring is seen with chronic renal atrophy. Small nonobstructing calculi are again seen in the superior pole of the left kidney measuring up to 3 mm in size. A cyst is again seen in the inferior pole of the right kidney th at does not appear significant changed. Both ureters appear mildly dilated with enhancing ureteral wa lls. No ureteral calculus is identified. Peritoneum and bowel: Bowel loops demonstrate normal wall thickness and caliber. Normal retrocecal a ppendix. No free fluid or air. Nodes and vessels: No retroperitoneal or mesenteric adenopathy by size criteria. Aorta and inferior vena cava are normal in size. Mild atherosclerotic calcifications are seen in the aorta. Miscellaneous: There is a small fat-containing periumbilical hernia. PELVIS: Genitourinary: There is diffuse bladder wall thickening. Miscellaneous: No inguinal hernias or adenopathy. Bones: No suspicious bony lesions. No vertebral body compression fractures. S-shaped curvature of the included spine is seen with multilevel degenerative changes. IMPRESSION: 1. Diffuse bladder wall thickening is nonspecific, but can be seen in the setting of cystitis. Mild bilateral hydroureter with ureteral wall enhancement is suspicious for ascending infection. No defini te signs of acute pyelonephritis. 2. Chronic left renal atrophy and multifocal scarring. Stable nonobstructing calculi in the superior pole of the left kidney. The previously seen left ureteral stent has been removed. Reviewed by: Dustin Rey MD on 12/18/2020 3:11 PM PST Approved by: Dustin Rey MD on 12/18/2020 3:11 PM PST Station ID: [id number]
[2020-12-18 17:03] VITALS: BP 154/88
[2020-12-18] MEDS ORDERED: NITROFURANTOIN MACRO 100 MG CAPSULE PO STA (17:04)
== END 2020-12-18 17:43 | disposition home or self-care (01) ==
LOC: ED 13:01
DX: N20.0 Calculus of kidney (principal); N30.00 Acute cystitis without hematuria; Q63.9 Congenital malformation of kidney, unspecified; Z87.442 Personal history of urinary calculi
CPT/HCPCS: 36415; 74177; 80053; 81001; 83690; 85025; 87040; 87086; 87181; 96361; 96365; 99284; A9270; J2185; Q9967; 81003

== ENCOUNTER 2023-09-06 08:11 | Outpatient (CLI) | payer MEDICARE, OTHER ==
[2023-09-06 08:24] LABS: BASOPHILS % (AUTO) 0.4 %; EOSINOPHILS # (AUTO) 0.3 10^3/uL (0.0-0.7); EOSINOPHILS % (AUTO) 3.5 %; HCT - HEMATOCRIT 45.6 % (42.0-52.0); HGB - HEMOGLOBIN 15.2 g/dL (14.0-18.0); LYMPHOCYTES % (AUTO) 26.6 %; MEAN CORPUSCULAR HEMOGLOBIN 31.5 pg (27.0-31.0); MEAN CORPUSCULAR HGB CONC 33.3 g/dL (32.0-36.0); MEAN CORPUSCULAR VOLUME 94.6 fL (80.0-94.0); MONOCYTES # (AUTO) 0.6 10^3/uL (0.0-1.0); MONOCYTES % (AUTO) 8.4 %; NEUTROPHILS # (AUTO) 4.6 10^3/uL (1.5-6.6); NEUTROPHILS % (AUTO) 60.7 %; PLT - PLATELET COUNT 162 10^3/uL (130-450); RED BLOOD COUNT 4.82 10^6/uL (4.70-6.10); RED CELL DISTRIBUTION WIDTH 13.4 % (12.0-15.0); WHITE BLOOD COUNT 7.6 x10^3/uL (4.8-10.8)
[2023-09-06 08:39] LABS: ALBUMIN 4.2 g/dL (3.2-5.5); ALBUMIN/GLOBULIN RATIO 2.1 (1.0-2.2); ALKALINE PHOSPHATASE 62 IU/L (42-121); ALT ALANINE AMINOTRANSFERASE 28 IU/L (10-60); AST ASPARTATE AMINOTRANSFERASE 25 IU/L (10-42); BUN - BLOOD UREA NITROGEN 16 mg/dL (6-20); CALCIUM 9.5 mg/dL (8.5-10.3); CARBON DIOXIDE - CO2 28 mmol/L (21-32); CHLORIDE 106 mmol/L (101-111); CHOL/HDL RATIO 3.6 (<5.0); CHOLESTEROL 157 mg/dL; CREATININE 1.1 mg/dL (0.6-1.3); GFR - MDRD 66 (>89); GLUCOSE 92 mg/dL (74-104); HDL CHOLESTEROL 44 mg/dL; LDL CHOLESTEROL,CALCULATED 79 mg/dL; LDL/HDL RATIO 1.8 (<3.6); POTASSIUM 3.9 mmol/L (3.5-4.5); SODIUM 140 mmol/L (135-145); TOTAL PROTEIN 6.2 g/dL (6.4-8.9); TRIGLYCERIDES 170 mg/dL (48-352); VLDL CHOLESTEROL 34 mg/dL
== END 2023-09-06 08:12 | disposition home or self-care (01) ==
LOC: LAB 08:11
PROVIDERS: ATTEND Family Medicine
DX: I10 Essential (primary) hypertension (principal); I25.10 Atherosclerotic heart disease of native coronary artery without angina pectoris; E11.9 Type 2 diabetes mellitus without complications; R79.89 Other specified abnormal findings of blood chemistry; Z79.899 Other long term (current) drug therapy
CPT/HCPCS: 36415; 80053; 80061; 83721; 84403; 85025